=== PATIENT | male | born 1980 ===

== ENCOUNTER → 2019-09-22 | Outpatient (CLI) | payer BC ==
--- NOTE | 2019-09-22 16:47 | WOMENS IMAGING REPORT ---
EXAM DESCRIPTION: BILAT DIAGNOSTIC MAMMO W/CAD; U/S BREAST UNILAT LIMITED IMAGES COMPLETED DATE/TIME: 09/22/2019 2:23 pm REASON FOR STUDY: N63.20 UNSPECIFIED LUMP IN THE LEFT BREAST, UNSPECIFIED QUADRANT N63.20 UNSPECIFI ED LUMP IN THE LEFT BREAST, UNSPECIFIED QUAD COMPARISON: None. EXAM PARAMETERS: Standard craniocaudal and mediolateral oblique views of each breast recorded using digital acquisition. Additional left male breast 90 mediolateral view Left breast ultrasound was performed with comparison right breast retroareolar images. Read with the assistance of CAD: .[facility] - [employer] Version 9.2 LIMITATIONS: None. FINDINGS: RIGHT BREAST MASSES: No suspicious masses. CALCIFICATIONS: No new or suspicious calcifications. ARCHITECTURAL DISTORTION: None. ASYMMETRY: None noted. OTHER: No other significant findings. LEFT BREAST MASSES: No suspicious masses. Left-sided gynecomastia is present CALCIFICATIONS: No new or suspicious calcifications. ARCHITECTURAL DISTORTION: None. ASYMMETRY: None noted. OTHER: No other significant finding. Left male breast ultrasound: Ultrasound of the left nipple areola was performed. There is left-sided gynecomastia without worriso me features. Comparison ultrasound imaging of the right nipple and retroareolar region was performed, unremarkable . IMPRESSION: Benign left gynecomastia. Clinical follow-up recommended. BREAST DENSITY: a. The breasts are almost entirely fatty. BIRAD: ASSESSMENT: 2 Benign findings. RECOMMENDATION: RECOMMENDED FOLLOW UP: Clinical follow-up recommended SPECIFIC INTERVENTION/IMAGING/CONSULTATION RECOMMENDED:No additional intervention/ imaging/consultati on needed at this time. COMMUNICATION:The negative/benign results were communicated to the patient. COMMENT: The patient has been notified of the results by letter per SA requirements. Additional no tification policies are in place for contacting patient with suspicious or incomplete findings. Quality ID #225: The [employer] recommends an annual screening mammogram for women aged 40 years or over. This facility utilizes a reminder system to ensure that all patients receive reminder letters, and/or direct phone calls for appointments. This includes reminders for routine scr eening mammograms, diagnostic mammograms, or other Breast Imaging Interventions when appropriate. Th is patient will be placed in the appropriate reminder system. TECHNICAL DOCUMENTATION: FINDING NUMBER: (1) ASSESSMENT: (1) JOB ID: [id number] [employer]- All Rights Reserved Reading location - IP/workstation name: [id number]
--- NOTE | 2019-09-22 16:47 | WOMENS IMAGING REPORT ---
EXAM DESCRIPTION: BILAT DIAGNOSTIC MAMMO W/CAD; U/S BREAST UNILAT LIMITED IMAGES COMPLETED DATE/TIME: 09/22/2019 2:23 pm REASON FOR STUDY: N63.20 UNSPECIFIED LUMP IN THE LEFT BREAST, UNSPECIFIED QUADRANT N63.20 UNSPECIFI ED LUMP IN THE LEFT BREAST, UNSPECIFIED QUAD COMPARISON: None. EXAM PARAMETERS: Standard craniocaudal and mediolateral oblique views of each breast recorded using digital acquisition. Additional left male breast 90 mediolateral view Left breast ultrasound was performed with comparison right breast retroareolar images. Read with the assistance of CAD: .[facility] BEDS AT THE [facility] - [employer] Version 9.2 LIMITATIONS: None. FINDINGS: RIGHT BREAST MASSES: No suspicious masses. CALCIFICATIONS: No new or suspicious calcifications. ARCHITECTURAL DISTORTION: None. ASYMMETRY: None noted. OTHER: No other significant findings. LEFT BREAST MASSES: No suspicious masses. Left-sided gynecomastia is present CALCIFICATIONS: No new or suspicious calcifications. ARCHITECTURAL DISTORTION: None. ASYMMETRY: None noted. OTHER: No other significant finding. Left male breast ultrasound: Ultrasound of the left nipple areola was performed. There is left-sided gynecomastia without worriso me features. Comparison ultrasound imaging of the right nipple and retroareolar region was performed, unremarkable . IMPRESSION: Benign left gynecomastia. Clinical follow-up recommended. BREAST DENSITY: a. The breasts are almost entirely fatty. BIRAD: ASSESSMENT: 2 Benign findings. RECOMMENDATION: RECOMMENDED FOLLOW UP: Clinical follow-up recommended SPECIFIC INTERVENTION/IMAGING/CONSULTATION RECOMMENDED:No additional intervention/ imaging/consultati on needed at this time. COMMUNICATION:The negative/benign results were communicated to the patient. COMMENT: The patient has been notified of the results by letter per SA requirements. Additional no tification policies are in place for contacting patient with suspicious or incomplete findings. Quality ID #225: The [employer] recommends an annual screening mammogram for women aged 40 years or over. This facility utilizes a reminder system to ensure that all patients receive reminder letters, and/or direct phone calls for appointments. This includes reminders for routine scr eening mammograms, diagnostic mammograms, or other Breast Imaging Interventions when appropriate. Th is patient will be placed in the appropriate reminder system. TECHNICAL DOCUMENTATION: FINDING NUMBER: (1) ASSESSMENT: (1) JOB ID: [id number] [employer]- All Rights Reserved Reading location - IP/workstation name: [id number]
== END ==
LOC: WI 14:21
PROVIDERS: ATTEND Nurse Practitioner Family
DX: N62 Hypertrophy of breast (principal)
CPT/HCPCS: 76642; 77066